=== PATIENT | female | born 1980 | race Caucasian/White ===

== ENCOUNTER 2020-01-31 18:08 | Emergency (ER) | payer MEDICAID ==
[~2020-01-31] VITALS: Ht 172.7 cm; Wt 99.8 kg
[2020-01-31 18:15] VITALS: BP 120/83
--- NOTE | 2020-01-31 18:38 | NUR ---
DR STAPLES AT BEDSIDE
[2020-01-31] MEDS ORDERED: ARIPiprazole 10 MG TAB PO ONE (18:40)
--- NOTE | 2020-01-31 18:40 | NUR ---
C/O ANXIETY ATTACK TODAY. STATES SHE DID NOT TAKE HER ABILIFY OR BENZATROPINE TODAY. PT REPORTS THAT SHE STOPPED USING METH 3 MONTH AGO. DENIES SI OR WANT TO HURT OTHERS AT THIS TIME. CURRENT[facility] HX: DEPRESSION, BIPOLAR, PTSD
--- NOTE | 2020-01-31 18:42 | NUR ---
CALLED PHARMACY FOR DANY, STATES 15 MIN THEY WILL BRING MED DOWN
--- NOTE | 2020-01-31 18:50 | NUR ---
ABILIFY AND BANDERYL PO ADMINISTERED
[2020-01-31] MEDS ORDERED: ACETAMINOPHEN 325 MG TAB PO ONE (19:05)
--- NOTE | 2020-01-31 19:08 | NUR ---
TYLENOL PO ADMINISTERED FOR PTS H/A. PAIN 11/29
[2020-01-31 19:13] VITALS: BP 128/76
--- NOTE | 2020-01-31 19:13 | NUR ---
Patient discharged with v/s stable. Written and verbal after care instructions given and explained. Patient alert, oriented and verbalized understanding of instructions. Ambulatory with steady gait. All questions addressed prior to discharge. ID band removed. Patient advised to follow up with PMD. Rx of TRAZADONE HYDROCHLORIDE given. Patient educated on indication of medication including possible reaction and side effects. Opportunity to ask questions provided and answered. PT GIVEN PHONE TO CALL HER RIDE TO PICK HER UP
== END 2020-01-31 19:13 | disposition home or self-care (01) ==
LOC: MED 18:08
DX: F41.9 Anxiety disorder, unspecified (principal); F15.10 Other stimulant abuse, uncomplicated; F17.200 Nicotine dependence, unspecified, uncomplicated; G47.00 Insomnia, unspecified; Z88.6 Allergy status to analgesic agent
CPT/HCPCS: 99284; Q0163